=== PATIENT | female | born 1945 | race Caucasian/White ===

== ENCOUNTER 2017-08-27 10:01 | Emergency (ER) | payer MEDICARE, SELFPAY ==
[~2017-08-27] VITALS: Ht 170.2 cm; Wt 69.0 kg
[~2017-08-27 10:01] MED LIST: AMLODIPINE BESY10 MG PO; ANORO ELLIPTA1 EACH INH; ATORVASTATIN CA10 MG PO; DELTASONE20 MG PO; IPRAT-ALBUT 0.5-3 ML INH; LEVOTHYROXINE175 MCG PO; LOSARTAN POTAS100 MG PO; NEXIUM20 MG PO; VENTOLIN HFA18 GM INH
--- NOTE | 2017-08-27 21:06 | EKG ---
[facility] [address] [facility] [place] [address] Signed Normal sinus rhythm Prolonged QT Abnormal ECG No previous ECGs available Confirmed by DONAL DOW MD ([id number]) on 08/27/2017 9:05:49 PM Electronically Signed By: DONAL DOW MD 08/27/17 2106 PATIENT NAME: ALILA ZHAO Electrocardiogram DATE OF : 41 PHYSICIAN: DONAL DOW MD REPORT #: [id number] REPORT IS CONFIDENTIAL AND NOT TO BE RELEASED WITHOUT AUTHORIZATION
== END 2017-08-27 12:30 | disposition home or self-care (01) ==
LOC: ED 10:01
DX: J44.9 Chronic obstructive pulmonary disease, unspecified (principal); E03.9 Hypothyroidism, unspecified; Z87.891 Personal history of nicotine dependence; Z88.6 Allergy status to analgesic agent; Z79.899 Other long term (current) drug therapy; Z79.51 Long term (current) use of inhaled steroids
CPT/HCPCS: 71045; 80053; 84484; 85025; 93005; 93010; 99284

== ENCOUNTER 2020-04-21 15:06 | Emergency (ER) | payer MEDICARE ==
[~2020-04-21] VITALS: Ht 170.2 cm; Wt 68.9 kg
--- NOTE | 2020-04-22 23:58 | EKG ---
[facility] [address] [facility] [place] [address] Signed Sinus tachycardia Biatrial enlargement Low voltage QRS Cannot rule out Anterior infarct , age undetermined Abnormal ECG When compared with ECG of 27-AUG-2017 11:05, Minimal criteria for Anterior infarct are now present Confirmed by DONAL DOW MD ([id number]) on 04/22/2020 11:58:22 PM Electronically Signed By: DONAL DOW MD 04/22/20 2358 PATIENT NAME: LAILA ZHAO Electrocardiogram DATE OF : 41 PHYSICIAN: DONAL DOW MD REPORT #: [id number] REPORT IS CONFIDENTIAL AND NOT TO BE RELEASED WITHOUT AUTHORIZATION
== END 2020-04-21 20:27 | disposition short-term general hospital (02) ==
LOC: ED 15:06
DX: U07.1 COVID-19 (principal); J44.1 Chronic obstructive pulmonary disease with (acute) exacerbation; E03.9 Hypothyroidism, unspecified; Z87.891 Personal history of nicotine dependence; Z88.8 Allergy status to other drugs, medicaments and biological substances; Z79.899 Other long term (current) drug therapy
CPT/HCPCS: 71045; 71260; 80053; 82803; 83605; 83880; 84484; 85025; 85379; 93005; 93010; 94640; 94660; 99285-25; C9803; J2405; J2930; J3010; Q9967; U0003

== ENCOUNTER 2021-10-02 12:16 | Emergency (ER) | payer OTHER, MEDICARE ==
[~2021-10-02] VITALS: Ht 170.2 cm; Wt 63.5 kg
[2021-10-02] MEDS ORDERED: SYMBICORT 16010.2 GM INH (12:48)
[2021-10-02] MEDS ORDERED: HYDROCODON-ACE1 EA10 PO (15:39)
== END 2021-10-02 16:01 | disposition home or self-care (01) ==
LOC: ED 12:16
DX: S52.502A Unspecified fracture of the lower end of left radius, initial encounter for closed fracture (principal); S52.615A Nondisplaced fracture of left ulna styloid process, initial encounter for closed fracture; J44.9 Chronic obstructive pulmonary disease, unspecified; E03.9 Hypothyroidism, unspecified; Z87.891 Personal history of nicotine dependence; Z88.8 Allergy status to other drugs, medicaments and biological substances; Z79.899 Other long term (current) drug therapy; Z79.51 Long term (current) use of inhaled steroids; W01.0XXA Fall on same level from slipping, tripping and stumbling without subsequent striking against object, initial encounter
CPT/HCPCS: 25605; 73090; 73110; 99283-25

== ENCOUNTER 2023-03-20 10:55 | Inpatient (IN) | payer MEDICARE ==
[2023-03-20] VITALS (14 sets, daily range): BP systolic 93–119; BP diastolic 45–96
[~2023-03-20] VITALS: Ht 170.2 cm; Wt 58.0 kg
[~2023-03-20 10:55] MED LIST changes: +HYDROCODON-ACE1 EA10 PO; +SYMBICORT 16010.2 GM INH
[2023-03-20 11:13] LABS: BASOPHILS 0.5 % (0-2); HEMOGLOBIN 12.1 g/dL (12.0-18.0); LYMPHOCYTES 1.1 % (24-44); MCH 28.6 (27-36); MCHC 31.7 g/dl (30-36); MCV 90.1 fl (81-99); MONOCYTES 4.6 % (0-12); NEUTROPHILS 93.8 % (39-80); PLATELET COUNT 356 K/uL (140-440); RBC 4.22 M/ul (4.3-5.7); RDW 15.1 (10.5-15.0)
[2023-03-20] MEDS ORDERED: SPIRIVA18 MCG INH (11:28)
[2023-03-20] MEDS ORDERED: [UNRECOGNIZED DRUG - OTHER] (11:28)
[2023-03-20] MEDS ORDERED: TIOTROPIUM (11:28)
[2023-03-20 11:38] LABS: ALBUMIN 3.7 g/dL (3.4-5.0); ALBUMIN/GLOBULIN RATIO 0.84 (1.1-2.4); ANION GAP 10.3 (7-21); BILIRUBIN, TOTAL 0.4 ng/dL (0.2-1.0); BUN/CREATININE RATIO 30.39 (6.0-28.6); CALCIUM 9.5 mg/dL (8.5-10.1); CREATININE, SERUM 1.02 mg/dL (0.55-1.02); POTASSIUM 4.3 mmol/L (3.5-5.1); PROTEIN, TOTAL 8.1 g/dL (6.4-8.2)
[2023-03-20 11:47] LABS: INFLUENZA B NAA NEGATIVE (NEGATIVE); RESPIRATORY SYNCYTIAL VIR NAA NEGATIVE (NEGATIVE)
[2023-03-20] MEDS ORDERED: LEVOTHYROXINE137 MCG PO (13:01)
[2023-03-20 13:08] LABS: PH, VENOUS 7.231 (7.31-7.41)
--- NOTE | 2023-03-20 13:33 | NUR ---
PT ADMITTED TO ROOM 127, ARRIVES WITH AND SON. PT IS WEARING BIPAP, RT PRESENT, ADMITTED FOR RESP FAILURE/PNEUMONIA, HAS COPD AND WEARS O2 AT HOME. PT IS AWAKE AND RESPONSIVE ON BIPAP, RESPIRATIONS VERY LABORED WITH ACC MUSCLE USE AND PT PREFERRING TO SIT UP IN TRIPOD POSITION IN BED. SPO2 MAINTAINING 94-97%, RR 28. PT ABLE TO ANSWER QUESTIONS WITH SHORT ONE-WORD ANSWERS. DENIES FEELING NAUSEATED AT THIS TIME, SHOWS THAT SHE CAN REMOVE MASK IF SHE NEEDS TO-CALL LIGHT IN HAND AND PT ABLE TO USE IT. QUESTIONS ANSWERED, PLAN OF CARE DISCUSSED WITH HER AND HER FAMILY.
--- NOTE | 2023-03-20 13:41 | NUR ---
UR NOTE: MCG MEETS PNEUMONIA (ISC) INPATIENT
[2023-03-20 13:44] LABS: PH, VENOUS 7.111 (7.31-7.41)
--- NOTE | 2023-03-20 14:07 | NUR ---
PCP AND PHARMACY CONTACTED FOR MEDICAL RECORDS
--- NOTE | 2023-03-20 14:15 | NUR ---
DR ORNELAS CALLED WITH RECENT VBG RESULTS, WILL KEEP BIPAP SETTINGS THE SAME FOR NOW AND REASSESS BLOOD GAS LATER TODAY. UPDATED ON BP'S TRENDING DOWN, ORDER GIVEN FOR 500ML BOLUS OVER 1 HOUR.
[2023-03-20 14:19] LABS: BASE EXCESS, BLOOD GAS -1.1 mmol/L (-2-2); O2 SATURATION, BLOOD GAS 92.6 % (95.0-100.0); PCO2, BLOOD GAS 70.1 mmHg (35-45); PH, BLOOD GAS 7.21 (7.35-7.45); PO2, BLOOD GAS 69 mmHg (80-100); TOTAL CO2, BLOOD GAS 30.2
[2023-03-20 14:20] LABS: OXYGEN RECEIVED, BLOOD GAS 32%
--- NOTE | 2023-03-20 14:34 | NUR ---
Patient with BIPAP in place, RT in room obtaining ABG's at this time. Will reattempt assessment at a later time.
--- NOTE | 2023-03-20 16:39 | NUR ---
Patient unable to answer questions. Son, Adams, at bedside. States patient and spouse live in one level home, ramp into home. Patient has a scooter and uses that for mobility due to shortness of breath with ambulation. Son states patient still drives, but does have friends able to assist when and if they are needed. Patient has a walker, but rarely uses it. Son does not think patient is going to remain able to care for herself for long. States he thinks an inspector dials is what patient needs. He is unaware of financial issues getting medications or food, but isn't sure if that is an issue at this time.
--- NOTE | 2023-03-20 16:44 | NUR ---
[facility]. Number for [facility] Corrigan provided to Adams, kaya.
--- NOTE | 2023-03-20 16:46 | NUR ---
DR GROVE IN TO SEE PT, RT IN TO TRY TO FIT BIPAP MASK. PLAN TO DO ABG HERE SOON TO REEVALUATE PT.
[2023-03-20 17:57] LABS: BASE EXCESS, BLOOD GAS 0.3 mmol/L (-2-2); HCO3, BLOOD GAS 29.3 mmol/L (22-26); O2 SATURATION, BLOOD GAS 97.2 % (95.0-100.0); PCO2, BLOOD GAS 72.2 mmHg (35-45); PH, BLOOD GAS 7.22 (7.35-7.45); PO2, BLOOD GAS 89 mmHg (80-100); TOTAL CO2, BLOOD GAS 31.6
[2023-03-20 17:58] LABS: OXYGEN RECEIVED, BLOOD GAS 32%
--- NOTE | 2023-03-20 18:16 | NUR ---
DR GROVE AWARE OF RECENT ABG RESULTS, WILL BE COMING OVER TO DISCUSS PLAN OF CARE OF PT, RT ALSO AWARE AND IS COMING OVER TO INCREASE RATE.
--- NOTE | 2023-03-20 18:44 | NUR ---
DR GROVE IN TO TALK WITH PT, SHE STATES SHE DOES WANT TO BE INTUBATED, SON AT BEDSIDE ALSO. SHE ALSO STATES THAT IF SHE CANT MAKE THE DECISION SHE WANTS HER SON AND HER DAUGHTER TO MAKE THE DECISION REGARDING TREATMENT. RT OVER, RR INCREASED.
--- NOTE | 2023-03-20 19:30 | NUR ---
PATIENT'S FAMILY ARRIVED TO THE UNIT. CONTACTED AND ARRIVED TO DISCUSS CODE STATUS WITH FAMILY. PATIENT SWITCHED TO VAPOTHERM. PATIENT ALERT AND ORIENTED TO SELF AND SURROUNDINGS. ALL QUESTIONS ANSWERED AND PATIENT VERBALIZED UNDERSTANDING OF DNR/DNI STATUS. PATIENT REQUEST HER DAUGHTER, WILLY SIGN POLST. PATIENT'S SON CECILIO AND DAUGHTER WILLY BOTH PRESENT FOR THIS CONVERSATION AND ARE IN SUPPORT OF DNR/DNI CODE STATUS.
--- NOTE | 2023-03-20 20:00 | NUR ---
PATIENT BACK ON BIPAP. PRN ATIVAN PROVIDED FOR ANXIETY. RT IN ROOM FOR NEB TREATMENT. PATIENT'S FAMILY AT BEDSIDE. LUNG SOUNDS ARE DIMMINISHED THROUGHOUT. PATIENT DENIED NEED TO VOID. PURE WIC IN PLACE. PATIENT REPOSITIONED TO HER LEFT SIDE WITH PILLOWS.
--- NOTE | 2023-03-20 22:00 | NUR ---
PATIENT DESAT TO THE 60'S ON BIPAP AT 35% Fi02; 18/01. PATIENT IS RESTLESS BUT HAD BEEN SLEEPING PRIOR. TITRATED TO 100% Fi02. PATIENT CONTINUES TO BE HYPOXIC. REPOSITIONED PATIENT TO HER BACK AND HOB ELEVATED TO 35 DEGREES. PRN ALBUTEROL STARTED. PATIENT STARTED TO IMPROVE. AFTER SEVERAL MINS PATIENT IMPORVED TO 100% SpO2; TITRATED Fi02 TO 60%. RT UPDATED.
--- NOTE | 2023-03-20 23:42 | NUR ---
PATIENT RESTING IN BED. TOLERATING BIPAP; SETTINGS PER RT. FAMILY AT BEDSIDE. VS STABLE. IV FLUIDS PER ORDER; SITE WNL. LUNG SOUNDS ARE DIMINISHED THROUGHOUT WITH INCREASED COARSENESS ON THE RIGHT. PATIENT HAS YET TO VOID; PURE WIC IN PLACE.
[2023-03-21] VITALS (19 sets, daily range): BP systolic 90–125; BP diastolic 45–84
[2023-03-21 00:13] LABS: PH, VENOUS 7.372 (7.31-7.41)
--- NOTE | 2023-03-21 03:03 | NUR ---
PATIENT MORE RESTLESS, PULLING AT MASK AND GOWN. ATTEMPTS TO REPOSITION PATIENT WERE MINIMALLY EFFECTIVE. SWITCHED PATIENT TO VAPOTHERM 30L 100% Fi02. ORAL CARE DONE. PATIENT RESPONDS TO HER NAME AND GIVES "YES" OR "NO" ANSWERS. RT CALLED FOR NEB TREATMENT. PATIENT LUNG SOUNDS ARE DIMINISHED THROUGHOUT WITH NEARLY NO AIR MOVEMENT.
--- NOTE | 2023-03-21 03:16 | NUR ---
RT IN ROOM. PATIENT BACK ON BIPAP PER RT. NEB TREATMENT GOING IN-LINE. PATIENT CONTINUES TO BE RESTLESS. FAMILY AT BEDSIDE.
--- NOTE | 2023-03-21 04:00 | NUR ---
PATIENT UP TO BSC TO VOID. PATIENT IS VERY DROSWY BUT INSISTENT ON GETTING UP TO VOID. PATIENT ON VAPOTHERM 30L 100% Fi02 FOR ACTIVITY. PATIENT VOIDED AND THEN ASSISTED BACK INTO BED. PATIENT'S WOB INCREASED, Sp02 MAINTAINED >90%. SWITCHED BACK TO BIPAP. ENCOURAGED PATIENT TO REST. FAMILY AT BEDSIDE.
--- NOTE | 2023-03-21 04:15 | NUR ---
PATIENT CONTINUED TO BE RESTLESS. PRN ATIVAN PROVIDED. PATIENT ON BIPAP. VS STABLE. IV FLUIDS PER ORDER, SITE WNL.
--- NOTE | 2023-03-21 05:59 | EKG ---
[facility] [address] [facility] [place] [address] Signed Sinus tachycardia Right atrial enlargement Rightward axis Pulmonary disease pattern Nonspecific T wave abnormality Abnormal ECG When compared with ECG of 21-APR-2020 15:47, Minimal criteria for Anterior infarct are no longer present Nonspecific T wave abnormality now evident in Inferior leads Nonspecific T wave abnormality now evident in Lateral leads Confirmed by DAVID GROVE MD ([id number]) on 03/21/2023 5:59:17 AM Electronically Signed By: DAVID GROVE 03/21/23 0559 PATIENT NAME: LAILA ZHAO Electrocardiogram DATE OF : 41 PHYSICIAN: DAVID GROVE REPORT #: [id number] REPORT IS CONFIDENTIAL AND NOT TO BE RELEASED WITHOUT AUTHORIZATION
[2023-03-21 06:07] LABS: PH, VENOUS 7.229 (7.31-7.41)
[2023-03-21 06:08] LABS: BASOPHILS 0.9 % (0-2); HEMATOCRIT 30.4 % (35.0-50.0); HEMOGLOBIN 9.5 g/dL (12.0-18.0); MCH 28.1 (27-36); MCHC 31.1 g/dl (30-36); MCV 90.5 fl (81-99); MONOCYTES 2.8 % (0-12); NEUTROPHILS 95.3 % (39-80); PLATELET COUNT 280 K/uL (140-440); RBC 3.36 M/ul (4.3-5.7)
[2023-03-21 06:23] LABS: ALBUMIN 2.6 g/dL (3.4-5.0); ALBUMIN/GLOBULIN RATIO 0.72 (1.1-2.4); ANION GAP 8.3 (7-21); BILIRUBIN, TOTAL 0.2 ng/dL (0.2-1.0); BUN/CREATININE RATIO 41.93 (6.0-28.6); CALCIUM 8.9 mg/dL (8.5-10.1); CREATININE, SERUM 0.93 mg/dL (0.55-1.02); MAGNESIUM 2.3 mg/dL (1.8-2.4); PHOSPHORUS, INORGANIC 3.9 mg/dL (2.5-4.9); POTASSIUM 4.3 mmol/L (3.5-5.1); PROTEIN, TOTAL 6.2 g/dL (6.4-8.2)
--- NOTE | 2023-03-21 06:34 | NUR ---
UPDATE GIVEN TO FAMILY AND . RT IN TO ADJUST BIPAP SETTINGS. PATIENT TOLERATING WELL. VS STABLE.
--- NOTE | 2023-03-21 07:30 | NUR ---
REPORT RECEIVED. SEVERAL FAMILY MEMBERS ARE IN ROOM. PATIENT ON BIPAP. IVF PATENT.
--- NOTE | 2023-03-21 08:20 | NUR ---
REPOSITIONED. RT IN ROOM, GIVING PATIENT NEB TREATMENT. PATIENT IS BERY SLEEPY. NOT FOLLOWING COMMANDS AT THIS TIME. LUNGS VERY DIMINISHED THROUGHOUT. ORAL CARE GIVEN. FACE WASHED.
--- NOTE | 2023-03-21 08:40 | NUR ---
RESTLESS. REPOSITIONED. O2 TO OXYMASK AT 4 LITERS FOR APPROX 5 MIN. THEN BACK ON BIPAP. 20/5 AND 35% FIO2. 5
--- NOTE | 2023-03-21 09:35 | NUR ---
SON COMES OUT TO SAY PT IS C/O PAIN, IN TO CHECK ON PT AND SHE IS VERY FIDGETING, PULLING AT BIPAP MASK AND TRYING TO TAKE GOWN OFF. 0.5MG IV ATIVAN GIVEN.
--- NOTE | 2023-03-21 10:29 | NUR ---
Changed out patient's bipap mask from a large to a small. Patient has bandage on bridge of nose and redness at corners of eyes due to mask being to large. Patient's leak was 5% after applying small mask. Pt currently restless in bed but will follow commands if you are persist with her.
--- NOTE | 2023-03-21 10:30 | NUR ---
TO COMMODE WITH TOTAL ASSIST TO VOID 200 ML OF CONCENTRATED URINE. BACK TO BED WITH ASSIST. ABLE TO PUT SOME WEIGHT ON LEGS.
--- NOTE | 2023-03-21 11:40 | NUR ---
RESTLESS, ATTEMPTING TO PULL OFF BIPAP. OXYMASK APPLIED AND DR. GROVE NOTIFIED NOT ABLE TO GIVE ATVAN YET. OREDED RECEIVED TO GIVE ATIVAN 0.5 MG IV Q 2 HR PRN AGITATION/ANXIEY, WAS ORDERED Q 4 HR PRN.
--- NOTE | 2023-03-21 12:15 | NUR ---
ATIVAN 0.5 MG IV GIVEN FOR RESTLESSNESS. BIPAP MASK REAPPLIED. SEVERAL FAMILY MEMBERS REMAIN IN ROOM.
--- NOTE | 2023-03-21 14:00 | NUR ---
RESTING WITH BIAP ON. SEVERAL FAMILY MEMBERS REMAIN IN ROOM. DOES HAVE PERIODS OF BEING RESTLESS.
[2023-03-21 14:25] LABS: PH, VENOUS 7.283 (7.31-7.41)
--- NOTE | 2023-03-21 14:40 | NUR ---
DR. MEJIA AWARE OF VBG. NO CHANGES.
--- NOTE | 2023-03-21 14:55 | NUR ---
DR. MEJIA HERE TO TALK WITH PATIENT FAMILY ABOUT POC. PATIENT SON, DAUGHTER, GRANDSON, THIS RN IN ROOM. PLAN TO CONTINUE TREATMENT FOR THE NEXT 1-2 DAYS, CONTINUE TO EVALUTE.
--- NOTE | 2023-03-21 16:46 | NUR ---
OFF BIPAP. NOW ON OXYMASK AT 4 L. ORAL CARE GIVEN. IVF INFUSING AT 100 ML/HR. HAS BEEN CALM MOST OF THE AFTERNOON. NO FUTHER ATIVAN GIVEN SINCE BEFORE NOON.
--- NOTE | 2023-03-21 18:00 | NUR ---
ON OXYMASK AT 4 L AFTER NEB TREATMENT. DAUGHTER IS IN ROOM.
--- NOTE | 2023-03-21 18:40 | NUR ---
ATIVAN 0.5 MG IV GIVEN, FOR RESTLESSNESS. BIPAP MASK REAPPLIED.
--- NOTE | 2023-03-21 18:45 | NUR ---
TOOK 200 ML OF CLEAR LIQ WHILE ON OXYMASK. PATIENT IS AWAKE AND ALERT. STATES SHE WANTS TO LEAVE OXYMASK ON FOR ANOTHER 1/2 HR. TOLD HER THAT WOULD BE OK LONG SHE DOESN'T HAVE INCREASED WORK OF BREATHING, AND O2 SATS STAY UP.
--- NOTE | 2023-03-21 19:00 | NUR ---
REMAINS RESTLESS AFTER ATIVAN GIVEN. OXYMASK REAPPLIED PER FAMILY MEMBERS REQUEST. FAMILY REMAIN IN ROOM.
--- NOTE | 2023-03-21 19:13 | NUR ---
REPORT TO NEXT SHIFT. NO FUTHER CHANGES.
--- NOTE | 2023-03-21 20:00 | NUR ---
PATIENT CONTINUES TO BE RESTLESS AFTER PRN MEDS, REPOSITIONING AND NEB TREATMENTS. PATIENT RECENTLY VOIDED AND DENIED NEED TO VOID. PATIENT IS UNABLE TO CLARIFY WHY SHE IS RESTLESS. FAMILY CONCERNS PATIENT IS IN PAIN. DISCUSSED WITH . ONE TIME DOSE TORADOL ORDERED. ALSO DISCUSSED HARKINS CATH AND MD AGREES TO HARKINS PLACEMENT IF BENEFIT TO PATIENT'S ABILITY TO REST. TORADOL PROVIDED AND DISCUSSED HARKINS PLACEMENT WITH FAMILY AND PATIENT. PATIENT SHAKES HER HEAD "NO" WHEN ASKED. WILL REVISIT LATER IF INDICATED. FAMILY AT BEDSIDE. PATIENT TOLERATING BIPAP; HOWEVER SHE IS PULLING AT CORDS AND CLOTHES.
--- NOTE | 2023-03-21 20:30 | NUR ---
PRN ATIVAN PROVIDED PER ORDER.
--- NOTE | 2023-03-21 21:10 | NUR ---
PATIENT REPOSITIONED IN BED TO HER RIGHT SIDE. LINEN STRAIGHTENED TO REDUCE WRINKLES. PATIENT IS MORE RESTFUL. TOLERATING BIPAP; VS STABLE. FAMILY AT BEDSIDE. LUNG SOUNDS ARE DIMINSIHED THROUGHOUT. ABD SOFT. IV SITE WNL, IV FLUIDS PER ORDER.
--- NOTE | 2023-03-21 22:30 | NUR ---
PATIENT APPEARS RESTFUL. FAMILY AT BEDSIDE. VS STABLE. TOLERATING BIPAP PER RT.
[2023-03-22] VITALS: BP 113/59
--- NOTE | 2023-03-22 00:45 | NUR ---
PATIENT RESTLESS; ATTEMPING TO PULL AT MASK. PATIENT DENIES NEED TO VOID. PRN ATIVAN PROVIDED. RT CALLED FOR NEB TREATMENT.
--- NOTE | 2023-03-22 01:28 | NUR ---
family comes to nurse station to say that the pt needs to use bsc. 2pa to bsc, 40ml of malordorous, dark yellow urine. pt tolerated fair. pt states no other needs at this time. family in room. call light in reach.
--- NOTE | 2023-03-22 02:15 | NUR ---
PATIENT RESTLESS AND PULLING AT GOWN AND MASK. FAMILY CONCERNED. PATIENT REQUESTING BIPAP OFF. PATIENT SWTICHED TO OXYMASK AT 4L. Sp02 REMAINS GREATER THAN 90%; RR INCREASED TO 25-30. WOB INCREASED. ORAL CARE DOWN. PATIENT IS SOB AND DROWSY. PROVIDED 1 WORD ANSWERS. REPOSITIONED SLIGHTLY ONTO HER LEFT SIDE. PATIENT REPORTS BEING COMFORTABLE. FAMILY REMAINS AT BEDSIDE.
[2023-03-22 02:34] VITALS: BP 121/54
--- NOTE | 2023-03-22 02:45 | NUR ---
PATIENT PROVIDED WITH PRN ATIVAN AND PLACED BACK ON BIPAP. PATIENT WOB HAD INCREASED SIGNIFICANTLY WHILE OFF BIPAP. PATIENT WAS ABLE TO VERBALIZE FEELING SOB. LUNG SOUNDS ARE TIGHT WITH MINIMAL AIR MOVEMENT.
[2023-03-22 04:00] VITALS: BP 96/50
--- NOTE | 2023-03-22 04:00 | NUR ---
PATIENT MORE RESTFUL. RT IN ROOM FOR NEB TREATMENT. VS STABLE. IV FLUIDS PER ORDER, SITE WNL. FAMILY AT BEDSIDE.
[2023-03-22 06:00] VITALS: BP 134/65
[2023-03-22 06:34] LABS: PH, VENOUS 7.292 (7.31-7.41)
[2023-03-22 06:37] LABS: BASOPHILS 0.5 % (0-2); HEMATOCRIT 32.8 % (35.0-50.0); HEMOGLOBIN 10.4 g/dL (12.0-18.0); LYMPHOCYTES 0.8 % (24-44); MCH 28.4 (27-36); MCHC 31.8 g/dl (30-36); MCV 89.4 fl (81-99); MONOCYTES 1.9 % (0-12); NEUTROPHILS 96.8 % (39-80); PLATELET COUNT 332 K/uL (140-440); RBC 3.66 M/ul (4.3-5.7); RDW 14.8 (10.5-15.0)
[2023-03-22 06:47] LABS: ANION GAP 10.5 (7-21); CALCIUM 9.3 mg/dL (8.5-10.1); CREATININE, SERUM 0.74 mg/dL (0.55-1.02); POTASSIUM 4.5 mmol/L (3.5-5.1)
--- NOTE | 2023-03-22 07:00 | NUR ---
FAMILY IN ROOM. PATIENT MORE RESTLESS. PRN ATIVAN GIVEN PER ORDER. PATIENT DIFFICULT TO COMFORT. SWITCHED TO OXYMASK. ORAL CARE DONE. PATIENT BREATHING LABORED, RETURNED TO BIPAP AFTER 5 MINS. PATIENT REPORTS BEING PAINFUL. ASSIST TO REPOSITION IN BED. DISCUSSED CONCERNS WITH . ON THE UNIT.
--- NOTE | 2023-03-22 07:30 | NUR ---
REPORT RECEIVED. FAMILY IN ROOM. PATIENT ON BIPAP. RESTLESS.
[2023-03-22 08:00] VITALS: BP 124/67
--- NOTE | 2023-03-22 08:15 | NUR ---
DR. MEJIA HERE TO SEE PATIENT AND TALK WITH FAMILY MEMBERS. DECISION TO MAKE PATIENT COMFORT CARE MADE. COMFORT CARE ORDERS TO BE WRITTEN LATER THIS DAY. BIPAP REMAINS ON. IVF TO TKO. ASSESSMENT DONE.
--- NOTE | 2023-03-22 10:00 | NUR ---
COMFORT CARE ORDERS RECEIVED. O2 AT [address]
--- NOTE | 2023-03-22 10:45 | NUR ---
MORPHINE 4 MG IV GIVEN FOR RESP COMFORT. MANY FAMILY MEMBERS IN ROOM.
--- NOTE | 2023-03-22 11:50 | NUR ---
MORPHINE 4 MG IV REPEATED FOR RESP COMFORT.
--- NOTE | 2023-03-22 13:08 | NUR ---
NO CHANGES. RR-14. VERY SHALLOW RESP.
--- NOTE | 2023-03-22 13:30 | NUR ---
DR. MEJIA HERE TO PRONOUNCE PATIENT .
--- NOTE | 2023-03-22 13:35 | NUR ---
USMAN HERE TO BE WITH FAMILY AND TAKE CARE OF DETAILS REGARDING .
--- NOTE | 2023-03-22 13:46 | NUR ---
Meet with family when decesion was made to turn off medical intervention. Prayed. left. came back after PT [place]. called [facility], the only personal belongings was a [place], went with PT
--- NOTE | 2023-03-22 14:20 | NUR ---
WITHOUT SPONTANEOUS RESP. NO AUDIBLE HEART TONES. DR. MEJIA NOTIFIED.
--- NOTE | 2023-03-22 14:25 | NUR ---
SUPERVISIOR AWARE OF PATIENT . SUPERVISIOR WILL NOTIFY USMAN.
== END 2023-03-22 13:20 | DRG 871 ==
LOC: ED 10:55 → CCU 12:43
PROVIDERS: Emergency Medicine; Family Medicine; ADMIT Family Medicine; ATTEND Family Medicine
PROC: 5A09457 Assistance with Respiratory Ventilation, 24-96 Consecutive Hours, Continuous Positive Airway Pressure (ICD-10-PCS; principal; 2023-03-20)
PROC: 3E03329 Introduction of Other Anti-infective into Peripheral Vein, Percutaneous Approach (ICD-10-PCS; 2023-03-20)
PROC: 4A033R1 Measurement of Arterial Saturation, Peripheral, Percutaneous Approach (ICD-10-PCS; 2023-03-20)
DX: A41.9 Sepsis, unspecified organism (principal); J18.9 Pneumonia, unspecified organism; J96.21 Acute and chronic respiratory failure with hypoxia; J44.1 Chronic obstructive pulmonary disease with (acute) exacerbation; J44.0 Chronic obstructive pulmonary disease with (acute) lower respiratory infection; E87.29 Other acidosis; E89.0 Postprocedural hypothyroidism; Z51.5 Encounter for palliative care; Z66 Do not resuscitate; R79.89 Other specified abnormal findings of blood chemistry; Z99.81 Dependence on supplemental oxygen; Z11.52 Encounter for screening for COVID-19; Z87.891 Personal history of nicotine dependence; Z88.8 Allergy status to other drugs, medicaments and biological substances; Z79.51 Long term (current) use of inhaled steroids; Z79.890 Hormone replacement therapy
CPT/HCPCS: 36415; 71045; 80048; 80053; 82803; 83605; 83735; 83880; 84100; 85025; 85060; 87502; 93005; 93010; 94640; 94660; 94799; 96374; 96375; 99285-25; J0456; J0696; J1650; J1885; J2060; J2270; J2405; J2930; J7060; J7121; U0002